=== PATIENT | male | born 1955 | race Caucasian/White ===

== ENCOUNTER 2020-04-26 20:07 | Emergency (ER) | payer OTHER ==
[2020-04-26] MEDS: 50% Dextrose in Water 50 ML Syringe IVPUSH ONE (20:20)
[2020-04-26] MEDS: Sodium Chloride 0.9% 10 ML Syringe FLUSH PRN (20:28)
[2020-04-26] MEDS: Sodium Chloride 0.9% 1,000 ML IV SCH (20:28)
--- NOTE | 2020-04-26 20:31 | EDM.PDOC ---
ED HPI GENERAL MEDICAL PROBLEM - General Chief Complaint: Neuro Symptoms/Deficits Stated Complaint: FACIAL DROOP Time Seen by Provider: 04/26/20 20:07 Source of Information: Reports: Patient, Family History Limitations: Reports: Altered Mental Status - History of Present Illness INITIAL COMMENTS - FREE TEXT/NARRATIVE: Presents to the emergency department by private vehicle this evening with right- sided deficit, change in speech, and experienced a fall at home roughly 1845 hrs. Stated he was feeling different this morning walking funny. This continued throughout the day with deficit to the right arm and right lower extremity at which time he fell at 1845 hrs. Denies injury from that but family members felt concerned advised evaluation. [facility] to seek [facility] available. Denies any complaint of pain or injury, speech was different in his weakness to the right side. No other contributing factors were acknowledged. No previous records available secondary [place] and he is unaware of accuracy of medications other than for his thyroid his diabetes and cholesterol treatment. Take aspirin at home prior to his arrival Onset: Today Onset Date: 04/26/20 Onset Time: 08:00 Duration: Hour(s):, Constant, Getting Worse Location: Reports: Head, Upper Extremity, Right, Lower Extremity, Right Severity: Moderate Improves with: Reports: None Worsens with: Reports: None Context: Reports: Other Associated Symptoms: Reports: Other (Right sided weakness, difficult ambul ation.) - Related Data Allergies Allergy/AdvReac Type Severity Reaction Status Date / Time bee venom protein (honey bee) Allergy Swelling Verified 04/26/20 20:12 Home Meds: Home Meds . [Unable to Verify Home Med List] 04/26/20 [History] Past Medical History HEENT History: Reports: None, Impaired Vision Cardiovascular History: Reports: None Respiratory History: Reports: None Gastrointestinal History: Reports: None Genitourinary History: Reports: None Musculoskeletal History: Reports: None Neurological History: Reports: None Psychiatric History: Reports: None Endocrine/Metabolic History: Reports: Diabetes, Type II, Hypothyroidism Hematologic History: Reports: None Oncologic (Cancer) History: Reports: None Dermatologic History: Reports: None - Infectious Disease History Infectious Disease History: Reports: None - Past Surgical History Other Surgical History Comment: States he had a surgery as a young child, roughly age 5, but is not aware of what it was. - Past Imaging History Past Imaging History: Reports: Xray - History Comment History Comment: Majority of the care provided through the [facility]. [facility] is used locally. Social & Family History - Family History Neurological: Reports: CVA (Mother at roughly mid 60s massive CVA) - Tobacco Use Smoking Status *Q: Former Smoker - Caffeine Use Caffeine Use: Reports: Soda, Tea - Alcohol Use Alcohol Use History: Yes Alcohol Use Frequency: Rarely - Recreational Drug Use Recreational Drug Use: No ED ROS GENERAL - Review of Systems Review Of Systems: See Below Constitutional: Reports: No Symptoms HEENT: Reports: No Symptoms Respiratory: Reports: No Symptoms Cardiovascular: Reports: No Symptoms Endocrine: Reports: No Symptoms GI/Abdominal: Reports: No Symptoms : Reports: No Symptoms Musculoskeletal: Reports: No Symptoms Skin: Reports: No Symptoms Neurological: Reports: Trouble Speaking, Gait Disturbance Psychiatric: Reports: No Symptoms Hematologic/Lymphatic: Reports: No Symptoms Immunologic: Reports: No Symptoms ED EXAM, GENERAL - Physical Exam Exam: See Below Free Text/Narrative:: Arrival via private vehicle staff was onsite for arrival. Alert, oriented with mild change to his speech, no true slurring. Glasses are present. PERRLA no icterus no injection. There is no loss of visual field. EOM is intact. Moist mucous membranes with no evidence of irritation. Neck is soft supple no lymphadenopathy, no bruit auscultated. Thorax is clear throughout no wheezes no crackles. Cardiac is regular, no murmur appreciated. Radial pulses correlate. Abdomen is soft diastases recti is noted above the umbilicus, nonpainful. Bowel sounds are present no tenderness. No edema nor injury to the lower extremities skin is warm and dry, pulses present. Deficit noted to the right upper extremity as well as lower extremity. Please see NIH stroke scale scoring a 5. Rectal was deferred. Bedside glucose of 43 was treated with IV dextrose 25 g D50 repeated to be 173. On return from CT chest x-ray performed with reports returning negative for any cardiac pulmonary involvement via EKG nor x-ray, CT negative for any acute intracranial findings. Call placed to [place] 1 call at 2014 to advise of potential stroke code. Was put in contact [place] [address] Hoyt and discussed scenario of hypoglycemia right-sided weakness. Will return call to the 1 call center upon completion of laboratory analysis and imaging. EKG INTERPRETATION EKG Date: 04/26/20 Time: 20:17 Rhythm: NSR [place]: LAD-Left [place] Deviation QRS: LBBB ST-T: Normal QT: Normal Comparison: NA - No Prior EKG Course - Vital Signs Last Recorded V/S: Last Vital Signs Temp 36.8 C 04/26/20 20:14 Pulse 80 04/26/20 21:32 Resp 16 04/26/20 21:32 BP 149/80 H 04/26/20 21:32 Pulse Ox 95 04/26/20 21:32 - Orders/Labs/Meds Orders: Active Orders 24 hr Category Date Time Status Blood Glucose Check, Bedside [RC] ONETIME Care 04/26/20 20:13 Ordered EKG Documentation Completion [RC] ASDIRECTED Care 04/26/20 20:14 Ordered Peripheral IV Care [RC] . DIRECTED Care 04/26/20 20:16 Ordered Sodium Chloride 0.9% @ 100 MLS/HR(1,000ml) Med 04/26/20 20:30 Ordered Sodium Chloride 0.9% [Normal Saline] 1,000 ml IV ASDIRECTED Sodium Chloride 0.9% [Saline Flush] Med 04/26/20 20:16 Ordered 10 ml FLUSH Q8HR PRN Peripheral IV Insertion Adult [OM.PC] Stat Oth 04/26/20 20:16 Ordered EKG 12 Lead [EK] Stat Ther 04/26/20 20:14 Ordered Medication Orders Sodium Chloride (Normal Saline) 1,000 mls @ 100 mls/hr IV ASDIRECTED JAYA Last Admin: 04/26/20 20:28 Dose: 100 mls/hr Documented by: THUY Sodium Chloride (Saline Flush) 10 ml FLUSH Q8HR PRN PRN Reason: keep vein open Last Admin: 04/26/20 20:28 Dose: 10 ml Documented by: THUY Labs: Laboratory Tests 04/26/20 04/26/20 04/26/20 Range/Units 20:11 20:14 20:14 WBC 11.06 H (5.00-10.00) 10^3/uL RBC 4.24 L (4.50-6.00) 10^6/uL Hgb 13.4 (13.0-17.0) g/dL Hct 39.3 L (40.0-52.0) % MCV 92.7 H (82.0-92.0) fL MCH 31.6 H (27.0-31.0) pg MCHC 34.1 (32.0-36.0) g/dL RDW 12.7 (11.5-14.5) % Plt Count 302 (150-400) 10^3/uL MPV 11.3 H (7.4-10.4) fL Immature Gran % (Auto) 0.5 (0.0-5.0) % Neut % (Auto) 78.4 H (50.0-70.0) % Lymph % (Auto) 14.0 L (20.0-40.0) % [place] % (Auto) 6.2 (2.0-8.0) % Eos % (Auto) 0.5 L (1.0-3.0) % Baso % (Auto) 0.4 (0.0-1.0) % Neut # (Auto) 8.68 H (2.50-7.00) 10^3/uL Lymph # (Auto) 1.55 (1.00-4.00) 10^3/uL [place] # (Auto) 0.69 (0.10-0.80) 10^3/uL Eos # (Auto) 0.05 L (0.10-0.30) 10^3/uL Baso # (Auto) 0.04 (0.00-0.10) 10^3/uL Immature Gran # (Auto) 0.05 (0.00-0.50) 10^3/uL PT (9.2-11.2) SEC INR (0.9-1.1) APTT (22.8-31.4) SEC Sodium 145 (136-145) mmol/L Potassium 4.5 (3.3-5.3) mmol/L Chloride 107 (98-115) mmol/L Carbon Dioxide 23.5 (21.0-32.0) mmol/L Anion Gap 19.0 H (5-15) mmol/L BUN 13 (6-25) mg/dL Creatinine 1.31 H (0.51-1.17) mg/dL Est Cr Clr Drug Dosing 53.96 mL/min Estimated GFR (MDRD) 55 mL/min Glucose 41 L (75 - 99) mg/dL POC Glucose 43 L (74-106) mg/dl Calcium 9.0 (8.7-10.3) mg/dL Total Bilirubin 0.5 (0.2-1.0) mg/dL AST 18 (15-37) U/L ALT 19 (12-78) U/L Alkaline Phosphatase 80 (46-116) IU/L Creatine Kinase 305 H* (26-276) U/L CK-MB (CK-2) 4.00 (0.00-4.30) ng/mL Troponin I < 0.04 (0.00-0.070) ng/mL Total Protein 7.1 (6.4-8.2) g/dL Albumin 4.01 (3.00-4.80) g/dL TSH, Ultra Sensitive 0.650 (0.340-4.820) uIU/mL 04/26/20 04/26/20 Range/Units 20:14 20:31 WBC (5.00-10.00) 10^3/uL RBC (4.50-6.00) 10^6/uL Hgb (13.0-17.0) g/dL Hct (40.0-52.0) % MCV (82.0-92.0) fL MCH (27.0-31.0) pg MCHC (32.0-36.0) g/dL RDW (11.5-14.5) % Plt Count (150-400) 10^3/uL MPV (7.4-10.4) fL Immature Gran % (Auto) (0.0-5.0) % Neut % (Auto) (50.0-70.0) % Lymph % (Auto) (20.0-40.0) % [place] % (Auto) (2.0-8.0) % Eos % (Auto) (1.0-3.0) % Baso % (Auto) (0.0-1.0) % Neut # (Auto) (2.50-7.00) 10^3/uL Lymph # (Auto) (1.00-4.00) 10^3/uL [place] # (Auto) (0.10-0.80) 10^3/uL Eos # (Auto) (0.10-0.30) 10^3/uL Baso # (Auto) (0.00-0.10) 10^3/uL Immature Gran # (Auto) (0.00-0.50) 10^3/uL PT 10.4 (9.2-11.2) SEC INR 1.0 (0.9-1.1) APTT 23.9 (22.8-31.4) SEC Sodium (136-145) mmol/L Potassium (3.3-5.3) mmol/L Chloride (98-115) mmol/L Carbon Dioxide (21.0-32.0) mmol/L Anion Gap (5-15) mmol/L BUN (6-25) mg/dL Creatinine (0.51-1.17) mg/dL Est Cr Clr Drug Dosing mL/min Estimated GFR (MDRD) mL/min Glucose (75 - 99) mg/dL POC Glucose 173 H (74-106) mg/dl Calcium (8.7-10.3) mg/dL Total Bilirubin (0.2-1.0) mg/dL AST (15-37) U/L ALT (12-78) U/L Alkaline Phosphatase (46-116) IU/L Creatine Kinase (26-276) U/L CK-MB (CK-2) (0.00-4.30) ng/mL Troponin I (0.00-0.070) ng/mL Total Protein (6.4-8.2) g/dL Albumin (3.00-4.80) g/dL TSH, Ultra Sensitive (0.340-4.820) uIU/mL Meds: Medications Generic Name Dose Route Start Last Admin Trade Name Freq PRN Reason Stop Dose Admin Sodium Chloride 1,000 mls @ 100 mls/hr 04/26/20 20:30 04/26/20 20:28 Normal Saline IV 100 mls/hr ASDIRECTED JAYA Administration Sodium Chloride 10 ml 04/26/20 20:16 04/26/20 20:28 Saline Flush FLUSH 10 ml Q8HR PRN Administration keep vein open Discontinued Medications Generic Name Dose Route Start Last Admin Trade Name Freq PRN Reason Stop Dose Admin Dextrose/Water 50 ml 04/26/20 20:15 04/26/20 20:20 Dextrose 50% In Water IVPUSH 04/26/20 20:16 50 ml ONETIME ONE Administration - Re-Assessments/Exams Free Text/Narrative Re-Assessment/Exam: 04/26/20 21:15 Feeling better after return from CT. 2054 hrs. repeat with no deficit to his motion able to complete [id number] to finger evaluation. States sensation changes have all resolved. Free Text/Narrative Re-Assessment/Exam: 04/26/20 21:35 Is feeling quite well at this time with no symptoms. Was ambulated with no difficulty smooth with a normal gait. Was offered observation declines, states he is able to go home. Was educated on low blood sugar and the fact he will need to eat upon returning home. Free Text/Narrative Re-Assessment/Exam: 04/26/20 21:43 Contacted [place] 1 call and spoke with Dr. Hoyt who agrees hypoglycemia as primary problem requires no further work-up nor transfer. Departure - Departure Time of Disposition: 21:30 Disposition: Home, Self-Care 01 Condition: Good Clinical Impression: Hypoglycemia due to type 2 diabetes mellitus, Diastasis of rectus abdominis - Discharge Information *PRESCRIPTION DRUG MONITORING PROGRAM REVIEWED*: Not Applicable *COPY OF PRESCRIPTION DRUG MONITORING REPORT IN PATIENT JENNYFER: Not Applicable Instructions: Hypoglycemia Forms: ED Department Discharge Additional Instructions: Call the [facility] to get in in the next week or so for recheck. You should get a glucose monitor so you are able to check your blood sugars at home. Continue all your medications as directed. Make a list of your medications to carry them with you in the event you need hospital emergency treatment in the future. You will need to eat today meal once getting home this evening. The sugar water we gave you in your IV will not last throughout the night. The Metformin and glyburide together will potentiate your blood sugar to go too low if you are not eating and drinking properly. Should increase your water intake as much as possible, limiting the soda and other sugared drinks. Call or return if symptoms or question should develop. You may also recheck at the [facility] since you are established with them in the event that delay in [facility] administration services occurs. Sepsis Event Note (ED) - Evaluation Sepsis Screening Result: No Definite Risk - Focused Exam Vital Signs: Vital Signs Temp Pulse Pulse Resp BP Pulse Ox 04/26/20 21:32 80 16 149/80 H 95 04/26/20 21:06 84 19 146/65 H 95 04/26/20 20:45 74 16 152/63 H 94 L 04/26/20 20:25 95 14 150/60 H 95 04/26/20 20:14 36.8 C 101 H 19 180/75 H 94 L - Problem List & Annotations (1) Hypoglycemia due to type 2 diabetes mellitus SNOMED Code(s): 442101294975861, 746755140540462 Code(s): E11.649 - TYPE 2 DIABETES MELLITUS WITH HYPOGLYCEMIA WITHOUT COMA Status: Acute Priority: Medium (2) Diastasis of rectus abdominis SNOMED Code(s): 21026123 Code(s): M62.08 - SEPARATION OF MUSCLE (NONTRAUMATIC), OTHER SITE Status: Chronic Priority: Low (3) Hypothyroidism in adult SNOMED Code(s): 13922789 Code(s): E03.9 - HYPOTHYROIDISM, UNSPECIFIED Status: Chronic Priority: Medium - Problem List Review Problem List Initiated/Reviewed/Updated: Yes - My Orders Last 24 Hours: My Active Orders 04/26/20 20:13 Blood Glucose Check, Bedside [RC] ONETIME 04/26/20 20:14 EKG Documentation Completion [RC] ASDIRECTED EKG 12 Lead [EK] Stat 04/26/20 20:16 Peripheral IV Care [RC] . DIRECTED Sodium Chloride 0.9% [Saline Flush] 10 ml FLUSH Q8HR PRN Peripheral IV Insertion Adult [OM.PC] Stat 04/26/20 20:30 Sodium Chloride 0.9% @ 100 MLS/HR(1,000ml) Sodium Chloride 0.9% [Normal Saline] 1,000 ml IV ASDIRECTED - Assessment/Plan Last 24 Hours: My Active Orders 04/26/20 20:13 Blood Glucose Check, Bedside [RC] ONETIME 04/26/20 20:14 EKG Documentation Completion [RC] ASDIRECTED EKG 12 Lead [EK] Stat 04/26/20 20:16 Peripheral IV Care [RC] . DIRECTED Sodium Chloride 0.9% [Saline Flush] 10 ml FLUSH Q8HR PRN Peripheral IV Insertion Adult [OM.PC] Stat 04/26/20 20:30 Sodium Chloride 0.9% @ 100 MLS/HR(1,000ml) Sodium Chloride 0.9% [Normal Saline] 1,000 ml IV ASDIRECTED Plan: Call the [facility] to get in in the next week or so for recheck. You should get a glucose monitor so you are able to check your blood sugars at home. Continue all your medications as directed. Make a list of your medications to carry them with you in the event you need hospital emergency treatment in the future. You will need to eat today meal once getting home this evening. The sugar water we gave you in your IV will not last throughout the night. The Metformin and glyburide together will potentiate your blood sugar to go too low if you are not eating and drinking properly. Should increase your water intake as much as possible, limiting the soda and other sugared drinks. Call or return if symptoms or question should develop. You may also recheck at the [facility] since you are established with them in the event that delay in [facility] services occurs.
--- NOTE | 2020-04-26 20:51 | CT ---
[id number] CT/CT Head WO IV EXAM: CT Head WO IV CLINICAL DATA: NEUROLOGIC DEFICIT COMPARISON: NO PREVIOUS SIMILAR EXAM IS AVAILABLE FOR COMPARISON. FINDINGS: There is no mass or mass effect. There is no hemorrhage or hydrocephalus. There are no extra-axial fluid collections. There are no sites of abnormal attenuation. IMPRESSION: NO PLAIN CT EVIDENCE OF ACUTE INTRACRANIAL PROCESS. Haseeb Dye MD 04/26/202049 Thank you for allowing us to participate in the care of your patient.
--- NOTE | 2020-04-26 20:52 | CR ---
[id number] RAD/RAD Chest PA or AP 1V EXAM: SINGLE VIEW CHEST. INDICATION: NEUROLOGIC DEFICIT COMPARISON: NO PREVIOUS SIMILAR EXAM IS AVAILABLE FINDINGS: The lungs are clear The cardiac silhouette is moderately enlarged IMPRESSION: NO ACUTE PROCESS Haseeb Dye MD 04/26/202050 Thank you for allowing us to participate in the care of your patient.
[2020-04-26 21:05] LABS: PTT,PARTIAL THROMBOPLSTIN TIME 23.9 SEC (22.8-31.4)
[2020-04-26 21:12] LABS: CHLORIDE,CL 107 mmol/L (98-115); SODIUM,NA 145 mmol/L (136-145)
== END 2020-04-26 21:40 | disposition home or self-care (01) ==
LOC: KA.ED 20:07
DX: S39.011A Strain of muscle, fascia and tendon of abdomen, initial encounter (principal); E11.649 Type 2 diabetes mellitus with hypoglycemia without coma; Z91.030 Bee allergy status; E03.9 Hypothyroidism, unspecified; Z87.891 Personal history of nicotine dependence; W19.XXXA Unspecified fall, initial encounter
CPT/HCPCS: 70450; 71045; 80053; 82550; 82553; 82962; 84443; 84484; 85025; 85610; 85730; 96361; 96374; 99284; 99284-25; J7030

== ENCOUNTER 2020-04-27 19:35 | Observation (INO) | payer OTHER ==
--- NOTE | 2020-04-27 20:18 | EDM.PDOC ---
ED HPI GENERAL MEDICAL PROBLEM - General Stated Complaint: Weak Time Seen by Provider: 04/27/20 19:59 Source of Information: Reports: Patient, Family (brother) History Limitations: Reports: No Limitations - History of Present Illness INITIAL COMMENTS - FREE TEXT/NARRATIVE: Patient presents feeling weak and unsteady. He is alert and interactive but sleepy. POC glucose here is <20 and he was given a glass of orange juice and piece of toast right away. He takes metformin and glyburide for NIDDM and has been on this regimen for several years. He ate three good meals today and took the prescribed doses of his medications. He was here in the ER last night with the same symptoms but was feeling worse at that time. His glucose was 43 and he also had head CT and stroke workup which were normal. Yesterday he hadn't eaten much at all; today he did but sounds like he had primarily protein-based meals: barbecue, brats, etc. He did have a pancake for breakfast and his brother says that he put some brown sugar in the barbecue. Patient does all of his medical care through the [facility] and hasn't seen another provider since 2000 when he went to ([facility] in [place]. - Related Data Allergies Allergy/AdvReac Type Severity Reaction Status Date / Time bee venom protein (honey bee) Allergy Swelling Verified 04/27/20 20:22 Home Meds: Home Meds Levothyroxine 112 mcg PO ACBREAKFAST 04/27/20 [History] Simvastatin 20 mg PO 2100 04/27/20 [History] glyBURIDE [Glyburide] 10 mg PO BID 04/27/20 [History] lisinopriL [Lisinopril] 20 mg PO DAILY 04/27/20 [History] metFORMIN HCl [Metformin HCl] 1,000 mg PO BID 04/27/20 [History] Past Medical History HEENT History: Reports: None, Impaired Vision Cardiovascular History: Reports: None Respiratory History: Reports: None Gastrointestinal History: Reports: None Genitourinary History: Reports: None Musculoskeletal History: Reports: None Neurological History: Reports: None Psychiatric History: Reports: None Endocrine/Metabolic History: Reports: Diabetes, Type II, Hypothyroidism Hematologic History: Reports: None Oncologic (Cancer) History: Reports: None Dermatologic History: Reports: None - Infectious Disease History Infectious Disease History: Reports: None - Past Surgical History Other Surgical History Comment: States he had a surgery as a young child, roughly age 5, but is not aware of what it was. - Past Imaging History Past Imaging History: Reports: Xray - History Comment History Comment: Majority of the care provided through the [facility]. [facility] is used locally. Social & Family History - Family History Neurological: Reports: CVA (Mother at roughly mid 60s massive CVA) - Caffeine Use Caffeine Use: Reports: Soda, Tea ED ROS GENERAL - Review of Systems Review Of Systems: See Below Constitutional: Reports: Weakness, Fatigue. Denies: Fever, Chills, Malaise HEENT: Denies: Ear Pain, Throat Pain, Vision Change Respiratory: Denies: Shortness of Breath, Cough Cardiovascular: Denies: Chest Pain, Syncope Endocrine: Reports: Low Glucose GI/Abdominal: Denies: Abdominal Pain, Constipation, Diarrhea, Vomiting : Denies: Dysuria, Flank Pain Musculoskeletal: Reports: No Symptoms Skin: Denies: Cyanosis, Jaundice, Mottled, Pallor, Diaphoresis Neurological: Denies: Confusion, Headache, Seizure, Syncope, Trouble Speaking, Difficulty Walking Psychiatric: Denies: Agitation, Anxiety, Confusion ED EXAM GENERAL NO PERIP PULSE - Physical Exam Exam: See Below Exam Limited By: No Limitations General Appearance: Alert, WD/WN, No Apparent Distress Eye Exam: Bilateral Eye: EOMI, Normal Inspection (full visual alcaraz bilat), PERRL Ears: Normal External Exam, Hearing Grossly Normal Nose: Normal Inspection, No Blood Throat/Mouth: Normal Inspection, Normal Lips, Normal Voice, No Airway Compromise Head: Atraumatic, Normocephalic Neck: Normal Inspection, Supple, Non-Tender, Full Range of Motion Respiratory/Chest: No Respiratory Distress, Lungs Clear, Normal Breath Sounds, No Accessory Muscle Use Cardiovascular: Regular Rate, Rhythm, No Murmur GI/Abdominal: Normal Bowel Sounds, Soft, Non-Tender, No Organomegaly, No Distention Back Exam: Normal Inspection, Full Range of Motion. No: CVA Tenderness (L), CVA Tenderness (R) Extremities: Normal Inspection, Normal Range of Motion, Non-Tender, Other (5/5 symmetric strength of UE/LE) Neurological: Alert, Oriented, CN II-XII Intact, Normal Cognition, No Motor/Sensory Deficits Psychiatric: Normal Affect, Normal Mood Skin Exam: Warm, Dry, Intact, Normal Color, No Rash Course - Vital Signs Last Recorded V/S: Last Vital Signs Temp 97.0 F 04/27/20 19:42 Pulse 102 H 04/27/20 20:18 Resp 20 04/27/20 20:18 BP 164/74 H 04/27/20 20:18 Pulse Ox 97 04/27/20 20:18 - Orders/Labs/Meds Orders: Active Orders 24 hr Category Date Time Status Patient Status [ADT] Routine ADT 04/27/20 21:02 Ordered Labs: Laboratory Tests 04/27/20 04/27/20 Range/Units 20:09 20:10 WBC 13.00 H (5.00-10.00) 10^3/uL RBC 4.43 L (4.50-6.00) 10^6/uL Hgb 14.0 (13.0-17.0) g/dL Hct 41.8 (40.0-52.0) % MCV 94.4 H (82.0-92.0) fL MCH 31.6 H (27.0-31.0) pg MCHC 33.5 (32.0-36.0) g/dL RDW 13.0 (11.5-14.5) % Plt Count 316 (150-400) 10^3/uL MPV 11.1 H (7.4-10.4) fL Immature Gran % (Auto) 0.2 (0.0-5.0) % Neut % (Auto) 74.0 H (50.0-70.0) % Lymph % (Auto) 16.8 L (20.0-40.0) % [place] % (Auto) 7.2 (2.0-8.0) % Eos % (Auto) 1.5 (1.0-3.0) % Baso % (Auto) 0.3 (0.0-1.0) % Neut # (Auto) 9.61 H (2.50-7.00) 10^3/uL Lymph # (Auto) 2.18 (1.00-4.00) 10^3/uL [place] # (Auto) 0.94 H (0.10-0.80) 10^3/uL Eos # (Auto) 0.20 (0.10-0.30) 10^3/uL Baso # (Auto) 0.04 (0.00-0.10) 10^3/uL Immature Gran # (Auto) 0.03 (0.00-0.50) 10^3/uL Sodium 146 H (136-145) mmol/L Potassium 4.6 (3.3-5.3) mmol/L Chloride 110 (98-115) mmol/L Carbon Dioxide 23.5 (21.0-32.0) mmol/L Anion Gap 17.1 H (5-15) mmol/L BUN 19 (6-25) mg/dL Creatinine 1.35 H (0.51-1.17) mg/dL Est Cr Clr Drug Dosing 52.36 mL/min Estimated GFR (MDRD) 53 mL/min Glucose 44 L (75 - 99) mg/dL Calcium 9.0 (8.7-10.3) mg/dL - Re-Assessments/Exams Free Text/Narrative Re-Assessment/Exam: 04/27/20 20:23 Patient has been alert and conversive throughout ER course. First glucose read <20; 2nd: 22; 3rd: 37; 4th (after second OJ and toast): 94. The RN couldn't obtain IV access and labs were drawn with butterfly. 04/27/20 21:12 I discussed findings and treatment options with patient. I advised staying in the hospital at least over night for observation. He is okay with that. His sister is a patient of Dr. Caballero so he wishes to see her. I discussed case with Dr. Caballero who accepted for observation admission. Patient stable throughout ER course. Departure - Departure Time of Disposition: 21:04 Disposition: Refer to Observation Condition: Good Clinical Impression: Hypoglycemia, Hypoglycemia due to type 2 diabetes mellitus - Discharge Information Sepsis Event Note (ED) - Focused Exam Vital Signs: Vital Signs Temp Pulse Resp BP Pulse Ox 04/27/20 20:18 102 H 20 164/74 H 97 04/27/20 19:42 97.0 F 115 H 20 173/79 H 96 - My Orders Last 24 Hours: My Active Orders 04/27/20 21:02 Patient Status [ADT] Routine - Assessment/Plan Last 24 Hours: My Active Orders 04/27/20 21:02 Patient Status [ADT] Routine
[2020-04-27 20:33] LABS: ANION GAP 17.1 mmol/L (5-15)
[2020-04-28 06:12] VITALS: PULSE 64
[2020-04-28] MEDS ORDERED: Levothyroxine 112 MCG Tab**OWN MED PO SCH (07:30)
[2020-04-28] MEDS ORDERED: Levothyroxine 112 MCG Tab PO SCH (07:30)
[2020-04-28 07:40] LABS: HEMOGLOBIN A1C 6.2 % (4.3-5.7)
[2020-04-28 07:41] LABS: ANION GAP 14.4 mmol/L (5-15); CHLORIDE,CL 107 mmol/L (98-115); SODIUM,NA 142 mmol/L (136-145)
[2020-04-28] MEDS ORDERED: metFORMIN 500 MG Tab PO SCH (08:00)
[2020-04-28 08:40] VITALS: BP 153/90
[2020-04-28] MEDS ORDERED: Lisinopril 20 MG Tab PO SCH (09:00)
--- NOTE | 2020-04-28 10:26 | PCM.DCSUM1 ---
Discharge Summary - Hospital Course Free Text/Narrative:: Admission Date: 04/27/2020 Discharge Date: 04/28/2020 Admission Diagnoses: Hypoglycemia Diabetes Mellitus Type II Discharge Diagnoses: Hypoglycemia, resolved. Hold Glyburide until evaluated by PCP at [facility] in [place]. Recommend glucometer for home use. Diabetes Mellitus Type II, A1C 6.2 Secondary Diagnoses: HTN Hyperlipidemia Hypothyroidism CODE STATUS: Full Code Medication changes at discharge: Hold Glyburide until follow-up with PCP at [facility] in [place]. Recommend follow-up in 1 week. Jesse is discharged from an overnight observation stay due to hypoglycemia. He has a history of diabetes mellitus type II and he has been on glyburide 10 mg PO BID as well as metformin 1,000 mg PO BID "for years". He has not had a recent adjustment in medications, no change in activity level and no change in eating habits. He states he has a little different life now that he was laid off from his job as the company closed but nothing that is out of the ordinary. He has not been ill. He does not have a glucometer and thus does not check his BG's. He was in the ER on 04/26/2020 with right sided weakness and concern for stroke. Head CT negative, CXR and EKG normal. Glucose was 41, he was given an amp of D50 and BT was 173. Weakness resolved with improved BG. [facility] was contacted and did not feel necessary to transfer given improvement of symptoms with resolution of hypoglycemia. He was discharged to home from ER. He presented again to the ER on 04/27/2020 with weakness and an unsteady gait. POC glucose in the ER was 21 and he was immediately given toast and juice and eventually the BG went up to 94. He was admitted for observation given 2 episodes of symptomatic hypoglycemia. His glyburide was held and since then his BG's have been in the 200's. He continues on metformin. This morning he is feeling well and "back to normal". He would like to go home and follow-up with his PCP. Diagnosis: Stroke: No Modified Raina Scale: No Symptoms at All Modified Buffalo Scale Score: 0 - Discharge Data Discharge Date: 04/28/20 Discharge Disposition: Home, Self-Care 01 Condition: Good - Referral to Home Health Primary Care Physician: PCP Not In Area - Patient Instructions Diet: Usual Diet as Tolerated Activity: As Tolerated - Discharge Plan *PRESCRIPTION DRUG MONITORING PROGRAM REVIEWED*: Not Applicable *COPY OF PRESCRIPTION DRUG MONITORING REPORT IN PATIENT JENNYFER: Not Applicable Home Medications: Home Meds Levothyroxine 112 mcg PO ACBREAKFAST 04/27/20 [History] Simvastatin 20 mg PO 2100 04/27/20 [History] lisinopriL [Lisinopril] 20 mg PO DAILY 04/27/20 [History] metFORMIN HCl [Metformin HCl] 1,000 mg PO BID 04/27/20 [History] - Discharge Summary/Plan Comment DC Time >30 min.: No - General Info Date of Service: 04/28/20 Admission Dx/Problem (Free Text: Hypoglycemia - Patient Data Vitals - Most Recent: Last Vital Signs Temp 98.1 F 04/28/20 06:06 Pulse 64 04/28/20 06:06 Resp 16 04/28/20 06:06 BP 153/90 H 04/28/20 08:35 Pulse Ox 96 04/28/20 08:46 Weight - Most Recent: 203 lb 8 oz I&O - Last 24 hours: Intake & Output 04/27/20 04/28/20 04/28/20 22:59 06:59 14:59 Intake Total 300 Output Total 400 700 Balance -400 -400 Lab Results - Last 24 hrs: Laboratory Results - last 24 hr 04/27/20 04/27/20 04/27/20 Range/Units 20:09 20:10 21:36 WBC 13.00 H (5.00-10.00) 10^3/uL RBC 4.43 L (4.50-6.00) 10^6/uL Hgb 14.0 (13.0-17.0) g/dL Hct 41.8 (40.0-52.0) % MCV 94.4 H (82.0-92.0) fL MCH 31.6 H (27.0-31.0) pg MCHC 33.5 (32.0-36.0) g/dL RDW 13.0 (11.5-14.5) % Plt Count 316 (150-400) 10^3/uL MPV 11.1 H (7.4-10.4) fL Immature Gran % (Auto) 0.2 (0.0-5.0) % Neut % (Auto) 74.0 H (50.0-70.0) % Lymph % (Auto) 16.8 L (20.0-40.0) % Brewster % (Auto) 7.2 (2.0-8.0) % Eos % (Auto) 1.5 (1.0-3.0) % Baso % (Auto) 0.3 (0.0-1.0) % Neut # (Auto) 9.61 H (2.50-7.00) 10^3/uL Lymph # (Auto) 2.18 (1.00-4.00) 10^3/uL Brewster # (Auto) 0.94 H (0.10-0.80) 10^3/uL Eos # (Auto) 0.20 (0.10-0.30) 10^3/uL Baso # (Auto) 0.04 (0.00-0.10) 10^3/uL Immature Gran # (Auto) 0.03 (0.00-0.50) 10^3/uL Sodium 146 H (136-145) mmol/L Potassium 4.6 (3.3-5.3) mmol/L Chloride 110 (98-115) mmol/L Carbon Dioxide 23.5 (21.0-32.0) mmol/L Anion Gap 17.1 H (5-15) mmol/L BUN 19 (6-25) mg/dL Creatinine 1.35 H (0.51-1.17) mg/dL Est Cr Clr Drug Dosing 52.36 mL/min Estimated GFR (MDRD) 53 mL/min Glucose 44 L (75 - 99) mg/dL POC Glucose 65 L (74-106) mg/dl Hemoglobin A1c (4.3-5.7) % Calcium 9.0 (8.7-10.3) mg/dL Free T4 (0.59-1.17) ng/dL TSH, Ultra Sensitive (0.340-4.820) uIU/mL 04/28/20 04/28/20 04/28/20 Range/Units 00:04 03:01 06:03 WBC (5.00-10.00) 10^3/uL RBC (4.50-6.00) 10^6/uL Hgb (13.0-17.0) g/dL Hct (40.0-52.0) % MCV (82.0-92.0) fL MCH (27.0-31.0) pg MCHC (32.0-36.0) g/dL RDW (11.5-14.5) % Plt Count (150-400) 10^3/uL MPV (7.4-10.4) fL Immature Gran % (Auto) (0.0-5.0) % Neut % (Auto) (50.0-70.0) % Lymph % (Auto) (20.0-40.0) % Brewster % (Auto) (2.0-8.0) % Eos % (Auto) (1.0-3.0) % Baso % (Auto) (0.0-1.0) % Neut # (Auto) (2.50-7.00) 10^3/uL Lymph # (Auto) (1.00-4.00) 10^3/uL Brewster # (Auto) (0.10-0.80) 10^3/uL Eos # (Auto) (0.10-0.30) 10^3/uL Baso # (Auto) (0.00-0.10) 10^3/uL Immature Gran # (Auto) (0.00-0.50) 10^3/uL Sodium (136-145) mmol/L Potassium (3.3-5.3) mmol/L Chloride (98-115) mmol/L Carbon Dioxide (21.0-32.0) mmol/L Anion Gap (5-15) mmol/L BUN (6-25) mg/dL Creatinine (0.51-1.17) mg/dL Est Cr Clr Drug Dosing mL/min Estimated GFR (MDRD) mL/min Glucose (75 - 99) mg/dL POC Glucose 150 H 224 H 237 H (74-106) mg/dl Hemoglobin A1c (4.3-5.7) % Calcium (8.7-10.3) mg/dL Free T4 (0.59-1.17) ng/dL TSH, Ultra Sensitive (0.340-4.820) uIU/mL 04/28/20 04/28/20 04/28/20 Range/Units 06:55 06:55 09:15 WBC (5.00-10.00) 10^3/uL RBC (4.50-6.00) 10^6/uL Hgb (13.0-17.0) g/dL Hct (40.0-52.0) % MCV (82.0-92.0) fL MCH (27.0-31.0) pg MCHC (32.0-36.0) g/dL RDW (11.5-14.5) % Plt Count (150-400) 10^3/uL MPV (7.4-10.4) fL Immature Gran % (Auto) (0.0-5.0) % Neut % (Auto) (50.0-70.0) % Lymph % (Auto) (20.0-40.0) % Brewster % (Auto) (2.0-8.0) % Eos % (Auto) (1.0-3.0) % Baso % (Auto) (0.0-1.0) % Neut # (Auto) (2.50-7.00) 10^3/uL Lymph # (Auto) (1.00-4.00) 10^3/uL Brewster # (Auto) (0.10-0.80) 10^3/uL Eos # (Auto) (0.10-0.30) 10^3/uL Baso # (Auto) (0.00-0.10) 10^3/uL Immature Gran # (Auto) (0.00-0.50) 10^3/uL Sodium 142 (136-145) mmol/L Potassium 4.6 (3.3-5.3) mmol/L Chloride 107 (98-115) mmol/L Carbon Dioxide 25.2 (21.0-32.0) mmol/L Anion Gap 14.4 (5-15) mmol/L BUN 18 (6-25) mg/dL Creatinine 1.21 H (0.51-1.17) mg/dL Est Cr Clr Drug Dosing 58.42 mL/min Estimated GFR (MDRD) > 60 mL/min Glucose 259 H (75 - 99) mg/dL POC Glucose 275 H (74-106) mg/dl Hemoglobin A1c 6.2 H (4.3-5.7) % Calcium 8.2 L (8.7-10.3) mg/dL Free T4 0.90 (0.59-1.17) ng/dL TSH, Ultra Sensitive 0.840 (0.340-4.820) uIU/mL Med Orders - Current: Current Medications Levothyroxine Sodium (Levothyroxine) 112 mcg PO ACBREAKFAST [facility] Last Admin: 04/28/20 07:34 Dose: 112 mcg Documented by: Lisinopril (Prinivil) 20 mg PO DAILY [facility] Last Admin: 04/28/20 08:35 Dose: 20 mg Documented by: Metformin HCl (Glucophage) 1,000 mg PO BIDMEALS [facility] Last Admin: 04/28/20 08:36 Dose: 1,000 mg Documented by: Simvastatin (Zocor) 20 mg PO BEDTIME [facility] Discontinued Medications Levothyroxine Sodium (Levothyroxine) 112 mcg PO ACBREAKFAST [facility] - Exam General: Reports: Alert, Oriented, Cooperative, No Acute Distress Neck: Reports: Supple Lungs: Reports: Clear to Auscultation, Normal Respiratory Effort Cardiovascular: Reports: Regular Rate, Regular Rhythm, No Murmurs GI/Abdominal Exam: Normal Bowel Sounds Extremities: Normal Inspection Skin: Reports: Warm, Dry Neurological: Reports: No New Focal Deficit, Normal Speech, Normal Tone, Strength Equal Bilateral Psy/Mental Status: Reports: Alert, Normal Affect, Normal Mood
[2020-04-28] MEDS ORDERED: Simvastatin 20 MG Tab PO SCH (21:00)
== END 2020-04-28 12:00 | disposition home or self-care (01) ==
LOC: KA.ED 19:35 → KA.MS 21:15
PROVIDERS: ADMIT Internal Medicine; ATTEND Internal Medicine
DX: E11.649 Type 2 diabetes mellitus with hypoglycemia without coma (principal); E78.5 Hyperlipidemia, unspecified; E03.9 Hypothyroidism, unspecified; Z91.030 Bee allergy status; Z79.84 Long term (current) use of oral hypoglycemic drugs; Z79.890 Hormone replacement therapy; Z79.899 Other long term (current) drug therapy
CPT/HCPCS: 36415; 80048; 82962; 83036; 84439; 84443; 85025; 99220; 99285; A9270-GY; G0378